=== PATIENT | male | born 1980 | race Caucasian/White ===

== ENCOUNTER 2021-07-12 02:51 | Emergency (ER) | payer BC ==
[2021-07-12 04:38] LABS: URINE BILIRUBIN - DIPSTICK NEGATIVE (NEGATIVE); URINE BLOOD DIPSTICK LARGE (NEGATIVE); URINE COLOR YELLOW; URINE GLUCOSE - DIPSTICK NEGATIVE (NEGATIVE); URINE KETONE NEGATIVE (NEGATIVE); URINE LEUK ESTERASE NEGATIVE (NEGATIVE); URINE PH 5.5 (4.5-8.0); URINE PROTEIN - DIPSTICK 30 mg/dL (NEG-TRACE); URINE SPECIFIC GRAVITY >=1.030; URINE UROBILINOGEN - DIPSTICK 0.2 E.U./dL (0.2)
[2021-07-12 04:45] LABS: HEMATOCRIT 47.5 % (39.0-50.0); HEMOGLOBIN 15.8 g/dl (14.0-18.0); IMMATURE GRANULOCYTES 0.3 % (0.0-5.0); MEAN CELL VOLUME 91.3 fL CALC (80.0-100.0); MEAN CORPUSCULAR HGB 30.4 pG CALC (26.0-32.0); MEAN CORPUSCULAR HGB CONC 33.3 g/dL CAL (32.0-36.0); NEUT# 3.62 thou/uL (1.82-7.42); RED BLOOD COUNT 5.2 mill/uL (4.70-6.10); RED CELL DISTRI WIDTH 12.5 % (11.5-15.5)
[2021-07-12 04:46] LABS: URINE NITRITE - DIPSTICK NEGATIVE (Negative)
[2021-07-12 04:47] LABS: ALBUMIN 4.7 g/dL (3.2-5.0); ALKALINE PHOSPHATASE 75 u/l (38-126); ANION GAP 13 (6-22 (CALC)); BILIRUBIN, TOTAL 1.1 mg/dL (0.0-1.4); BUN 20 mg/dL (9-20); BUN/CREATININE RATIO 17 (12-20 (CALC)); CARBON DIOXIDE 29 mmol/l (22-30); CHLORIDE 103 mmol/l (95-108); CREATININE 1.2 mg/dL (0.7-1.3); ETHYL ALCOHOL 0 mg/dl (0-30); GFR > 60 ML/MIN (>=60 (CALC)); GFR FOR AFR.AMER. > 60 ML/MIN (>=60 (CALC)); LIPASE 100 u/l (23-300); POTASSIUM 3.5 mmol/l (3.5-5.1); SGOT/AST 31 u/l (17-59); SODIUM 141 mmol/l (137-146); TOTAL PROTEIN 8.3 g/dL (6.3-8.2)
[2021-07-12 04:47] LABS: URINE SQUAMOUS EPITHELIAL CELL FEW EPI/hpf (0-FEW)
== END 2021-07-12 06:07 | disposition home or self-care (01) | DRG 730 ==
LOC: ED 02:51
DX: N52.9 Male erectile dysfunction, unspecified (principal); R31.9 Hematuria, unspecified; F41.9 Anxiety disorder, unspecified; F31.9 Bipolar disorder, unspecified
CPT/HCPCS: Q9967

== ENCOUNTER 2021-07-31 18:32 | Emergency (ER) | payer BC ==
[2021-07-31] VITALS (8 sets, daily range): BP systolic 111–140; BP diastolic 55–88
[~2021-07-31] VITALS: Ht 160 cm; Wt 72.0 kg
[2021-07-31] MEDS ORDERED: MEDICAL MARIJUANA (19:37)
[2021-07-31] MEDS ORDERED: MELOXICAM7.5 MG PO (19:38)
[2021-07-31] MEDS ORDERED: PEPCID20 MG PO (19:39)
[2021-07-31 19:49] LABS: HEMATOCRIT 46.2 % (39.0-50.0); HEMOGLOBIN 15.7 g/dl (14.0-18.0); IMMATURE GRANULOCYTES 0.1 % (0.0-5.0); MEAN CELL VOLUME 90.4 fL CALC (80.0-100.0); MEAN CORPUSCULAR HGB 30.7 pG CALC (26.0-32.0); NEUT# 4.74 thou/uL (1.82-7.42); RED BLOOD COUNT 5.11 mill/uL (4.70-6.10)
[2021-07-31 20:13] LABS: ALBUMIN 4.3 g/dL (3.2-5.0); ALKALINE PHOSPHATASE 80 u/l (38-126); ANION GAP 13 (6-22 (CALC)); BILIRUBIN, TOTAL 0.5 mg/dL (0.0-1.4); BUN 20 mg/dL (9-20); BUN/CREATININE RATIO 18 (12-20 (CALC)); CARBON DIOXIDE 28 mmol/l (22-30); CHLORIDE 102 mmol/l (95-108); CREATININE 1.1 mg/dL (0.7-1.3); GFR > 60 ML/MIN (>=60 (CALC)); GFR FOR AFR.AMER. > 60 ML/MIN (>=60 (CALC)); POTASSIUM 4.5 mmol/l (3.5-5.1); SGOT/AST 45 u/l (17-59); SODIUM 138 mmol/l (137-146); TOTAL PROTEIN 7.1 g/dL (6.3-8.2)
[2021-07-31] MEDS ORDERED: CLARITIN10 M2 PO (20:58)
[2021-07-31] MEDS ORDERED: AMOXICILLIN500 MG PO (20:58)
== END 2021-07-31 21:16 | disposition home or self-care (01) | DRG 153 ==
LOC: ED 18:32
PROVIDERS: Emergency Medicine
DX: J02.9 Acute pharyngitis, unspecified (principal); F41.9 Anxiety disorder, unspecified; F31.9 Bipolar disorder, unspecified; F17.200 Nicotine dependence, unspecified, uncomplicated; Z20.822 Contact with and (suspected) exposure to COVID-19
CPT/HCPCS: Q9967

== ENCOUNTER 2021-12-05 08:12 | Emergency (ER) | payer SELFPAY ==
[2021-12-05] VITALS (14 sets, daily range): BP systolic 107–144; BP diastolic 55–89
[~2021-12-05] VITALS: Ht 165.1 cm; Wt 72.7 kg
[~2021-12-05 08:12] MED LIST: AMOXICILLIN500 MG PO; CLARITIN10 M2 PO; MEDICAL MARIJUANA; MELOXICAM7.5 MG PO; PEPCID20 MG PO
[2021-12-05 08:46] LABS: HEMATOCRIT 43.8 % (39.0-50.0); IMMATURE GRANULOCYTES 0.1 % (0.0-5.0); MEAN CELL VOLUME 89.8 fL CALC (80.0-100.0); MEAN CORPUSCULAR HGB 30.7 pG CALC (26.0-32.0); MEAN CORPUSCULAR HGB CONC 34.2 g/dL CAL (32.0-36.0); NEUT# 5.72 thou/uL (1.82-7.42); RED BLOOD COUNT 4.88 mill/uL (4.70-6.10); RED CELL DISTRI WIDTH 11.9 % (11.5-15.5)
[2021-12-05 09:24] LABS: ALKALINE PHOSPHATASE 80 u/l (38-126); ANION GAP 13 (6-22 (CALC)); BUN 13 mg/dL (9-20); BUN/CREATININE RATIO 14 (12-20 (CALC)); CARBON DIOXIDE 24 mmol/l (22-30); CHLORIDE 106 mmol/l (95-108); GFR FOR AFR.AMER. > 60 ML/MIN (>=60 (CALC)); GFR OTHER RACES > 60 ML/MIN (>=60 (CALC)); POTASSIUM 4.1 mmol/l (3.5-5.1); SGOT/AST 16 u/l (17-59); SODIUM 138 mmol/l (137-146); TOTAL PROTEIN 6.7 g/dL (6.3-8.2)
[2021-12-05 09:43] LABS: BILIRUBIN, TOTAL 0.2 mg/dL (0.0-1.4)
[2021-12-05] MEDS ORDERED: ZOFRAN4 MG/TAB PO (11:27)
[2021-12-05] MEDS ORDERED: BACTRIM DS1 TAB PO (11:27)
[2021-12-05] MEDS ORDERED: PAXLOVID PO (11:33)
== END 2021-12-05 11:41 | disposition home or self-care (01) | DRG 602 ==
LOC: ED
PROVIDERS: Family Medicine
DX: L03.311 Cellulitis of abdominal wall (principal); U07.1 COVID-19; R05.9 Cough, unspecified; R50.9 Fever, unspecified; R11.2 Nausea with vomiting, unspecified; F41.9 Anxiety disorder, unspecified; F31.9 Bipolar disorder, unspecified; F17.210 Nicotine dependence, cigarettes, uncomplicated
CPT/HCPCS: Q9967

== ENCOUNTER 2022-03-11 21:37 | Emergency (ER) | payer SELFPAY ==
[~2022-03-11 21:37] MED LIST changes: +BACTRIM DS1 TAB PO; +PAXLOVID PO; +ZOFRAN4 MG/TAB PO
== END 2022-03-11 22:04 | disposition left against medical advice (07) | DRG 951 ==
LOC: ED 21:37 → LWOBS 22:02
DX: Z53.21 Procedure and treatment not carried out due to patient leaving prior to being seen by health care provider (principal)

== ENCOUNTER 2022-04-25 11:00 | Emergency (ER) | payer SELFPAY ==
[2022-04-25] VITALS (10 sets, daily range): BP systolic 127–170; BP diastolic 76–101
[~2022-04-25] VITALS: Ht 165.1 cm; Wt 76.2 kg
[2022-04-25 13:03] LABS: URINE BILIRUBIN - DIPSTICK NEGATIVE (NEGATIVE); URINE BLOOD DIPSTICK MODERATE (NEGATIVE); URINE COLOR YELLOW; URINE GLUCOSE - DIPSTICK NEGATIVE (NEGATIVE); URINE KETONE NEGATIVE (NEGATIVE); URINE LEUK ESTERASE NEGATIVE (NEGATIVE); URINE PROTEIN - DIPSTICK NEGATIVE (NEG-TRACE); URINE SPECIFIC GRAVITY 1.025; URINE UROBILINOGEN - DIPSTICK 0.2 E.U./dL (0.2)
[2022-04-25 13:08] LABS: URINE NITRITE - DIPSTICK NEGATIVE (Negative)
[2022-04-25 13:14] LABS: HEMATOCRIT 49.7 % (39.0-50.0); IMMATURE GRANULOCYTES 0.1 % (0.0-5.0); MEAN CELL VOLUME 89.5 fL CALC (80.0-100.0); MEAN CORPUSCULAR HGB 31.2 pG CALC (26.0-32.0); MEAN CORPUSCULAR HGB CONC 34.8 g/dL CAL (32.0-36.0); NEUT# 6.09 thou/uL (1.82-7.42); RED BLOOD COUNT 5.55 mill/uL (4.70-6.10); RED CELL DISTRI WIDTH 11.9 % (11.5-15.5)
[2022-04-25 13:19] LABS: HEMOGLOBIN 17.3 g/dl (14.0-18.0)
[2022-04-25 13:23] LABS: ALKALINE PHOSPHATASE 85 u/l (38-126); ANION GAP 16 (6-22 (CALC)); BUN 10 mg/dL (9-20); BUN/CREATININE RATIO 10 (12-20 (CALC)); CARBON DIOXIDE 24 mmol/l (22-30); CHLORIDE 108 mmol/l (95-108); GFR FOR AFR.AMER. > 60 ML/MIN (>=60 (CALC)); GFR OTHER RACES > 60 ML/MIN (>=60 (CALC)); POTASSIUM 4.3 mmol/l (3.5-5.1); SGOT/AST 24 u/l (17-59); SODIUM 144 mmol/l (137-146); TOTAL PROTEIN 7.5 g/dL (6.3-8.2)
[2022-04-25 13:32] LABS: ALBUMIN 4.9 g/dL (3.2-5.0); BILIRUBIN, TOTAL 0.6 mg/dL (0.0-1.4)
[2022-04-25] MEDS ORDERED: DICYCLOMINE10 MG PO (18:22)
[2022-04-25] MEDS ORDERED: HYDROCO/APAP1 TA9 PO (18:22)
[2022-04-25] MEDS ORDERED: PROTONIX40 M2 PO (18:22)
== END 2022-04-25 18:42 | disposition home or self-care (01) | DRG 392 ==
LOC: ED 11:00
PROVIDERS: Emergency Medicine
DX: R10.9 Unspecified abdominal pain (principal); K21.9 Gastro-esophageal reflux disease without esophagitis
CPT/HCPCS: Q9967; S0164

== ENCOUNTER 2022-05-19 09:49 | Emergency (ER) | payer OTHER ==
[2022-05-19] VITALS (15 sets, daily range): BP systolic 110–173; BP diastolic 68–106
[~2022-05-19] VITALS: Ht 175.3 cm; Wt 75.0 kg
[~2022-05-19 09:49] MED LIST changes: +DICYCLOMINE10 MG PO; +HYDROCO/APAP1 TA9 PO; +PROTONIX40 M2 PO
[2022-05-19 11:03] LABS: BASO% 0.7 % (0-3); EOS% 2.5 % (0-8); HEMATOCRIT 48.8 % (39.0-50.0); HEMOGLOBIN 17.4 g/dl (14.0-18.0); IMMATURE GRANULOCYTES 0.2 % (0.0-5.0); LYMPH% 25.7 % (15-41); MEAN CELL VOLUME 87.5 fL CALC (80.0-100.0); MEAN CORPUSCULAR HGB 31.2 pG CALC (26.0-32.0); MEAN CORPUSCULAR HGB CONC 35.7 g/dL CAL (32.0-36.0); MONO% 8.5 % (2-13); NEUT# 3.76 thou/uL (1.82-7.42); NEUT% 62.4 % (42-76); RED BLOOD COUNT 5.58 mill/uL (4.70-6.10); RED CELL DISTRI WIDTH 11.8 % (11.5-15.5)
[2022-05-19 11:03] LABS: URINE BLOOD DIPSTICK MODERATE (NEGATIVE); URINE COLOR YELLOW; URINE GLUCOSE - DIPSTICK NEGATIVE (NEGATIVE); URINE KETONE TRACE mg/dL (NEGATIVE); URINE LEUK ESTERASE NEGATIVE (NEGATIVE); URINE PH 5.5 (4.5-8.0); URINE PROTEIN - DIPSTICK 30 mg/dL (NEG-TRACE); URINE SPECIFIC GRAVITY >=1.030
[2022-05-19 11:10] LABS: URINE BILIRUBIN - DIPSTICK NEGATIVE (NEGATIVE); URINE NITRITE - DIPSTICK NEGATIVE (Negative)
[2022-05-19 11:12] LABS: ALBUMIN 4.9 g/dL (3.2-5.0); ALKALINE PHOSPHATASE 105 u/l (38-126); ANION GAP 12 (6-22 (CALC)); BUN 12 mg/dL (9-20); BUN/CREATININE RATIO 11 (12-20 (CALC)); CARBON DIOXIDE 28 mmol/l (22-30); CHLORIDE 105 mmol/l (95-108); CREATININE 1.1 mg/dL (0.7-1.3); GFR FOR AFR.AMER. > 60 ML/MIN (>=60 (CALC)); GFR OTHER RACES > 60 ML/MIN (>=60 (CALC)); LIPASE 45 u/l (23-300); POTASSIUM 3.6 mmol/l (3.5-5.1); SGOT/AST 25 u/l (17-59); SODIUM 141 mmol/l (137-146); TOTAL PROTEIN 8.4 g/dL (6.3-8.2)
[2022-05-19 11:14] LABS: URINE SPERM FEW hpf (NONE-RARE); URINE WBC 0-2 WBC/hpf (0-5)
[2022-05-19 11:18] LABS: BILIRUBIN, TOTAL 0.9 mg/dL (0.0-1.4)
[2022-05-19] MEDS ORDERED: HYOSCYAMINE0.125 MG PO (15:36)
[2022-05-19] MEDS ORDERED: HYDROCO/APAP1 TA9 PO (15:36)
== END 2022-05-19 16:46 | disposition home or self-care (01) | DRG 392 ==
LOC: ED 09:49
PROVIDERS: Family Medicine
DX: R10.84 Generalized abdominal pain (principal)

== ENCOUNTER 2022-08-21 09:51 | Emergency (ER) | payer OTHER ==
[2022-08-21] VITALS (7 sets, daily range): BP systolic 103–141; BP diastolic 46–90
[~2022-08-21] VITALS: Ht 175.3 cm; Wt 74.0 kg
[~2022-08-21 09:51] MED LIST changes: +HYOSCYAMINE0.125 MG PO
[2022-08-21 10:22] LABS: BASO% 0.1 % (0-3); HEMATOCRIT 49.4 % (39.0-50.0); HEMOGLOBIN 16.8 g/dl (14.0-18.0); IMMATURE GRANULOCYTES 0.7 % (0.0-5.0); MEAN CELL VOLUME 87.7 fL CALC (80.0-100.0); MEAN CORPUSCULAR HGB 29.8 pG CALC (26.0-32.0); MONO% 5.9 % (2-13); NEUT# 6.66 thou/uL (1.82-7.42); NEUT% 74.3 % (42-76); RED BLOOD COUNT 5.63 mill/uL (4.70-6.10); RED CELL DISTRI WIDTH 11.7 % (11.5-15.5)
[2022-08-21 10:45] LABS: ALBUMIN 4.9 g/dL (3.2-5.0); ALKALINE PHOSPHATASE 110 u/l (38-126); BUN 12 mg/dL (9-20); BUN/CREATININE RATIO 13 (12-20 (CALC)); CHLORIDE 107 mmol/l (95-108); GFR FOR AFR.AMER. > 60 ML/MIN (>=60 (CALC)); GFR OTHER RACES > 60 ML/MIN (>=60 (CALC)); LIPASE 61 u/l (23-300); SGOT/AST 30 u/l (17-59); SODIUM 141 mmol/l (137-146); TOTAL PROTEIN 8.1 g/dL (6.3-8.2)
[2022-08-21 10:46] LABS: ANION GAP 19 (6-22 (CALC)); BILIRUBIN, TOTAL 1.3 mg/dL (0.2-1.3); CARBON DIOXIDE 19 mmol/l (22-30); POTASSIUM 4.4 mmol/l (3.5-5.1)
[2022-08-21] MEDS ORDERED: PROTONIX40 M2 PO (13:24)
[2022-08-21] MEDS ORDERED: ZOFRAN4 MG/TAB PO (13:24)
[2022-08-21] MEDS ORDERED: HALDOL5 M1 PO (13:24)
== END 2022-08-21 15:45 | disposition home or self-care (01) | DRG 392 ==
LOC: ED 09:51
PROVIDERS: Family Medicine
DX: R10.33 Periumbilical pain (principal); R11.2 Nausea with vomiting, unspecified; F41.9 Anxiety disorder, unspecified; F31.9 Bipolar disorder, unspecified; F17.210 Nicotine dependence, cigarettes, uncomplicated
CPT/HCPCS: Q9967

== ENCOUNTER 2022-11-12 10:10 | Emergency (ER) | payer OTHER ==
[2022-11-12] VITALS (13 sets, daily range): BP systolic 125–151; BP diastolic 79–110
[~2022-11-12] VITALS: Ht 175.3 cm; Wt 72.8 kg
[~2022-11-12 10:10] MED LIST changes: +HALDOL5 M1 PO
[2022-11-12 10:43] LABS: BASO% 0.5 % (0-3); EOS% 1.4 % (0-8); HEMATOCRIT 48.5 % (39.0-50.0); HEMOGLOBIN 16.9 g/dl (14.0-18.0); IMMATURE GRANULOCYTES 0.2 % (0.0-5.0); LYMPH% 24.7 % (15-41); MEAN CORPUSCULAR HGB 30.7 pG CALC (26.0-32.0); MEAN CORPUSCULAR HGB CONC 34.8 g/dL CAL (32.0-36.0); MONO% 7.8 % (2-13); NEUT# 4.29 thou/uL (1.82-7.42); NEUT% 65.4 % (42-76); RED BLOOD COUNT 5.51 mill/uL (4.70-6.10); RED CELL DISTRI WIDTH 12.1 % (11.5-15.5)
[2022-11-12 10:49] LABS: ALBUMIN 4.8 g/dL (3.2-5.0); ALKALINE PHOSPHATASE 81 u/l (38-126); BUN 11 mg/dL (9-20); BUN/CREATININE RATIO 10 (12-20 (CALC)); CHLORIDE 104 mmol/l (95-108); CREATININE 1.1 mg/dL (0.7-1.3); GFR FOR AFR.AMER. > 60 ML/MIN (>=60 (CALC)); GFR OTHER RACES > 60 ML/MIN (>=60 (CALC)); POTASSIUM 4.3 mmol/l (3.5-5.1); SGOT/AST 26 u/l (17-59); SODIUM 140 mmol/l (137-146); TOTAL PROTEIN 8.3 g/dL (6.3-8.2)
[2022-11-12 10:56] LABS: ANION GAP 13 (6-22 (CALC)); CARBON DIOXIDE 27 mmol/l (22-30)
[2022-11-12] MEDS ORDERED: OMEPRAZOLE DR40 MG PO (11:03)
[2022-11-12 11:34] LABS: ALBUMIN 4.8 g/dL (3.2-5.0); ALKALINE PHOSPHATASE 79 u/l (38-126); BILIRUBIN, TOTAL 0.9 mg/dL (0.2-1.3); LIPASE 57 u/l (23-300); SGOT/AST 32 u/l (17-59); TOTAL PROTEIN 8.4 g/dL (6.3-8.2)
[2022-11-12 11:52] LABS: D-DIMER 0.34 mg/L (0.19-0.60)
[2022-11-12 12:02] LABS: INTERNATIONAL NORMALIZED RATIO 1.1 RATIO (0.7-1.3); PROTHROMBIN TIME 10.5 SECONDS (9.0-12.5)
[2022-11-12 15:50] LABS: URINE BILIRUBIN - DIPSTICK NEGATIVE (NEGATIVE); URINE BLOOD DIPSTICK TRACE-INTACT (NEGATIVE); URINE COLOR YELLOW; URINE GLUCOSE - DIPSTICK NEGATIVE (NEGATIVE); URINE KETONE 40 mg/dL (NEGATIVE); URINE LEUK ESTERASE NEGATIVE (NEGATIVE); URINE PROTEIN - DIPSTICK NEGATIVE (NEG-TRACE); URINE SPECIFIC GRAVITY 1.015
[2022-11-12 15:53] LABS: URINE NITRITE - DIPSTICK NEGATIVE (Negative)
== END 2022-11-12 17:18 | disposition home or self-care (01) | DRG 390 ==
LOC: ED 10:10
PROVIDERS: Family Medicine
DX: K56.41 Fecal impaction (principal); F41.9 Anxiety disorder, unspecified; F31.9 Bipolar disorder, unspecified
CPT/HCPCS: Q9967; S0164

== ENCOUNTER 2024-02-12 09:46 | Emergency (ER) | payer OTHER ==
[2024-02-12] VITALS (7 sets, daily range): BP systolic 108–129; BP diastolic 82–91
[~2024-02-12] VITALS: Ht 175.3 cm; Wt 90.7 kg
[~2024-02-12 09:46] MED LIST changes: +OMEPRAZOLE DR40 MG PO
[2024-02-12 10:47] LABS: BASO% 0.5 % (0-3); EOS% 1.1 % (0-8); IMMATURE GRANULOCYTES 0.6 % (0.0-5.0); LYMPH% 14.8 % (15-41); MEAN CELL VOLUME 83.5 fL CALC (80.0-100.0); MEAN CORPUSCULAR HGB 27.3 pG CALC (26.0-32.0); MEAN CORPUSCULAR HGB CONC 32.7 g/dL CAL (32.0-36.0); MONO% 7.3 % (2-13); NEUT# 5.97 thou/uL (1.82-7.42); NEUT% 75.7 % (42-76); RED BLOOD COUNT 5.27 mill/uL (4.70-6.10); RED CELL DISTRI WIDTH 13.4 % (11.5-15.5)
[2024-02-12 10:49] LABS: HEMOGLOBIN 14.4 g/dl (14.0-18.0)
[2024-02-12 11:05] LABS: ALBUMIN 4.3 g/dL (3.2-5.0); ALKALINE PHOSPHATASE 98 u/l (38-126); ANION GAP 10 (6-22 (CALC)); BILIRUBIN, TOTAL 0.7 mg/dL (0.2-1.3); BUN 12 mg/dL (9-20); BUN/CREATININE RATIO 10 (12-20 (CALC)); CARBON DIOXIDE 23 mmol/l (22-30); CHLORIDE 111 mmol/l (95-108); CREATININE 1.3 mg/dL (0.7-1.3); ESTIMATED GFR 71 ML/MIN (>=90 (CALC)); POTASSIUM 3.9 mmol/l (3.5-5.1); SGOT/AST 22 u/l (17-59); SODIUM 139 mmol/l (137-146); TOTAL PROTEIN 7.9 g/dL (6.3-8.2)
[2024-02-12] MEDS ORDERED: AMOX/K CLAV875 M1 PO (12:12)
[2024-02-12] MEDS ORDERED: ZPAK PO (12:12)
== END 2024-02-12 12:34 | disposition home or self-care (01) | DRG 195 ==
LOC: ED 09:46
PROVIDERS: Family Medicine
DX: J18.9 Pneumonia, unspecified organism (principal); F41.9 Anxiety disorder, unspecified; F31.9 Bipolar disorder, unspecified; Q79.8 Other congenital malformations of musculoskeletal system; Z20.822 Contact with and (suspected) exposure to COVID-19
CPT/HCPCS: Q9967